=== PATIENT | female | born 1965 | race Caucasian/White ===

== ENCOUNTER 2016-08-18 12:00 | Inpatient (IN) | payer BC ==
--- NOTE | ~2016-08-18 | HP ---
Unit #: [id number] #: [id number] Patient: MELYSSA HALL [id number] [place] [address] [id number] MR#: [id number] NAME: MELYSSA HALL. ROOM: [facility] Age: 50 Sex: F Admission Date: 08/18/2016 : 1965 Attending Physician: Mir Peoples M.D. Admitting Physician: Mir Peoples M.D. Primary Care Physician: Janell Dumont M.D. HISTORY AND PHYSICAL HISTORY OF PRESENT ILLNESS Maureen is a 50 year old admitted to [facility] with depression and verbalizing wanting to hurt herself. PAST MEDICAL HISTORY Nothing significant. PAST SURGICAL HISTORY Nothing reported. ALLERGIES Penicillin, Compazine, codeine, sulfa, chlorzoxazone. SOCIAL HISTORY She denies cigarettes, alcohol and illicit drug use. FAMILY HISTORY Medically noncontributory. REVIEW OF SYSTEMS CONSTITUTIONAL: No fever or chills. HEENT: Denies any sore throat, ear pain or runny nose. CARDIOVASCULAR: Denies chest pain, irregular heart rhythm or palpitations. CHEST: Denies shortness of breath or cough. No hemoptysis. GASTROINTESTINAL: Denies nausea, vomiting, diarrhea or chronic constipation. ENDOCRINE: Denies history of increased thirst or urination. No recent significant weight loss or gain. GENITOURINARY: Denies dysuria, frequency, or hematuria. SKIN: Denies any rashes. HEMATOLOGIC: Denies history of increased bleeding or bruising. MUSCULOSKELETAL: Denies any hot, swollen joints. No generalized muscle pain. NEUROLOGIC: Denies problems with vision or speech. No frequent, severe headaches. No numbness, tingling or weakness in any extremities. Denies loss of bladder or bowel control. CURRENT MEDICATIONS 1. Milk of Magnesia p.r.n. 2. Maalox p.r.n. 3. Tylenol p.r.n. 4. Lorazepam p.r.n. Unit #: [id number] #: [id number] Patient: MELYSSA HALL 5. Citalopram 10 mg q day PHYSICAL EXAMINATION GENERAL: Alert, well-nourished, in no apparent distress. VITAL SIGNS: Blood pressure 120/80, heart rate 98, respirations 16, temperature 98.6. WEIGHT: 145 pounds. HEIGHT: 5'6". SKIN: Warm and dry without rash or lesion. HEENT: Normocephalic. TMs not viewed. Oral and nasal passages clear. Conjunctivae clear. Pupils equal, round and reactive to light and accommodation. Extraocular movements intact. NECK: Supple without lymphadenopathy or thyromegaly. HEART: Regular rate and rhythm without murmur. LUNGS: Clear. ABDOMEN: Soft, nontender. : Not done. EXTREMITIES: No evidence of cyanosis, clubbing or edema. Moves all extremities without focal deficit. NEUROLOGICAL: Grossly within normal limits. Cranial Nerves: II: Visual cifuentes are intact. III, IV AND : Extraocular movements are intact. Pupils are equal, round and reactive to light. V: Facial sensation is grossly normal. VII: Facial movements and expression are normal. VIII: Auditory acuity grossly intact. IX, X: Uvula is midline. Phonation is normal. XI: Patient shrugs shoulders and turns head normally. XII: Tongue protrudes in the midline. Sensory and Motor Function: Sensory and motor sensation is grossly normal. Motor: moves all extremities well. Coordination: Gait is normal. Deep Tendon Reflexes: Intact. IMPRESSION Psychiatric admission RECOMMENDATIONS PSYCHIATRIC: Per psychiatrist. MEDICAL: I see no contraindications to participating in facility's activities. MEDICAL PROGNOSIS Good. MEDICAL CONDITION Stable. Dictated by... Linda Grant P.A.-C. for Tyron Evans/rocio TD: 08/19/2016 23:41 JOB #: [id number] Unit #: [id number] #: [id number] Patient: MELYSSA HALL HISTORY AND PHYSICAL Page 1 of 1 X Linda Grant HISTORY AND PHYSICAL
--- NOTE | ~2016-08-18 | PN ---
Unit #: [id number] #: [id number] Patient: MELYSSA HALL [id number] [facility] [address] [place] [address] [id number] I MR#: [id number] NAME: MELYSSA HALL. ROOM: [facility] Age: 50 Sex: F Admission Date: 08/18/2016 : 1965 Attending Physician: Mir Peoples M.D. Admitting Physician: Mir Peoples M.D. Primary Care Physician: Tyron Whelan PROGRESS NOTES DATE 08/22/2016 DISCUSSION The patient is brighter today and is reporting some reduction in intrusive thoughts. She states that she may be ready for discharge as early as tomorrow and should she sustain progress, we will look in this direction. Dictated by... Mir Peoples M.D. CB/kellie TD: 08/22/2016 15:50 JOB #: [id number] [facility] PROGRESS NOTES Page 1 of 1 X Mir Peoples MD X PROGRESS NOTE
--- NOTE | ~2016-08-18 | DS ---
Unit #: [id number] #: [id number] Patient: MELYSSA HALL [id number] [place] [address] [id number] I MR#: [id number] NAME: MELYSSA HALL. ROOM: [facility] Age: 50 Sex: F Admission Date: 08/18/2016 : 1965 Discharge Date: 08/23/2016 Attending Physician: Mir Peoples M.D. Primary Care Physician: Janell Dumont M.D. DISCHARGE SUMMARY REASON FOR ADMISSION The patient is a 50-year-old single white female, admitted to the hospital with worsening depression and symptoms of intrusive thoughts consistent with obsessive-compulsive disorder. HOSPITAL COURSE The patient was admitted to the [facility] and placed on suicide precautions. Her Celexa was increased to 20 mg daily and the patient was also begun on Ativan 0.5 mg q.6 hours p.r.n. anxiety and zolpidem 5 mg at h.s. p.r.n. insomnia. The patient showed slow, but steady improvement. During her stay in the hospital, Ativan was changed to 0.25 mg t.i.d. on a scheduled basis. On 08/21/2016, the patient did much better with this medication regimen. By 08/24/2016, the patient was in bright spirits and agreeable with plan for followup in the [facility] intensive outpatient program. Discharge was ordered. FINAL DIAGNOSES Major depressive disorder, recurrent, moderate and obsessive-compulsive disorder. DISPOSITION ON DISCHARGE The patient is discharged on the following medications: Ativan 0.25 mg t.i.d. for anxiety, Ambien 5 mg at h.s. p.r.n. insomnia, and Celexa 20 mg daily for depression and obsessive-compulsive disorder. DISCHARGE INSTRUCTIONS No dietary or physical restrictions were placed upon the patient at the time of discharge. FOLLOWUP Followup will take place through the auspices of the intensive outpatient program at [facility] and under the care of Dr. Elmira Schmid. PROGNOSIS The patient's prognosis is considered good. Dictated by... Mir Peoples M.D. SANDRA/deangelo TD: 08/23/2016 17:02 Unit #: [id number] #: [id number] Patient: MELYSSA HALL JOB #: [id number] DISCHARGE SUMMARY Page 1 of 1 X Mir Peoples MD DISCHARGE SUMMARY
--- NOTE | ~2016-08-18 | PN ---
Unit #: [id number] #: [id number] Patient: MELYSSA HALL [id number] [facility] [address] [place] [address] [id number] I MR#: [id number] NAME: MELYSSA HALL. ROOM: [facility] Age: 50 Sex: F Admission Date: 08/18/2016 : 1965 Attending Physician: Mir Peoples M.D. Admitting Physician: Mir Peoples M.D. Primary Care Physician: Tyron Whelan PROGRESS NOTES DATE 08/21/2016 DISCUSSION The patient continues to complain of significant medicine teacher anxiety, continues to report considerable fear of her intrusive thoughts particularly those which occur early in the morning, I have reassured the patient that these thoughts are normal but we will go ahead and begin the patient on scheduled Ativan 0.25 mg three times daily on a scheduled basis to address her ongoing symptoms of anxiety. Dictated by... Mir Peoples M.D. CB/aidee TD: 08/21/2016 13:08 JOB #: [id number] [facility] PROGRESS NOTES Page 1 of 1 X Mir Peoples MD X PROGRESS NOTE
--- NOTE | ~2016-08-18 | PA ---
Unit #: [id number] #: [id number] Patient: MELYSSA HALL [id number] [place] [address] [id number] I MR#: [id number] NAME: MELYSSA HALL. ROOM: [facility] Age: 50 Sex: F Admission Date: 08/18/2016 : 1965 Date of Assessment: 08/19/2016 Attending Physician: Mir Peoples M.D. Admitting Physician: Mir Peoples M.D. Primary Care Physician: Janell Dumont M.D. PSYCHIATRIC ASSESSMENT IDENTIFYING INFORMATION The patient is a 50-year-old white female admitted with increasing depressed mood, thoughts of suicide and intrusive thoughts. CHIEF COMPLAINT None given. INFORMANT The patient, reliability is good. HISTORY OF PRESENT ILLNESS The patient is a 50-year-old white female admitted to the [address] [place] [address] after she presented to this facility reporting increasing intrusive thoughts. The patient states that she is fearful that she will harm herself or harm her children. The patient reports no previous suicide attempts or gestures. The patient reports that she had been stable on citalopram for some 15 years but that this medication had been stopped in 2014 by her outpatient psychiatrist Dr. Escobar. She had no recurrence of depressive or anxiety symptoms until approximately one week ago and the patient does feel as though recent hormonal replacement patch has may have played a role in her rapid develop of symptoms. These have since been discontinued. The patient is currently reporting no suicidal or homicidal ideation but does report ongoing intrusive thoughts and is fearful that she will harm her children. [facility] The patient denies use of alcohol, tobacco or street drugs. She lives with her two adopted children both of them were from [place]. 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 She complains of recent poor sleep. She denies loss of appetite. PAST PSYCHIATRIC HISTORY As above. PAST MEDICAL HISTORY Noncontributory. MEDICATIONS 1. Penicillin 2. Bactrim 3. Codeine 4. Compazine 5. Chlorzoxazone FAMILY HISTORY Unit #: [id number] #: [id number] Patient: MELYSSA HALL Noncontributory. SOCIAL HISTORY The patient lives with her two children. Her occupational history and substance abuse history was prescribed previously. She is not a smoker. MENTAL STATUS EXAMINATION At this time reveals the patient to be a well-developed, well-nourished white female, appearing her stated age. She is in no apparent physical distress at the time of examination. She is awake, alert, and oriented in all spheres. Her mood is dysphoric. Her affect constricted. Speech is generally relevant and coherent. There are no gross deficits in memory or cognition noted. Intelligence is judged to be in the average range based on fund of knowledge. The patient is cooperative throughout the interview. She is currently reporting intrusive thoughts involving self-harm and harm to her children but denies active suicidal or homicidal ideation. She denies any psychotic symptoms. Her judgement and insight appear to be intact. ASSETS AND LIABILITIES ASSETS: Motivation for change, high level of functioning. LIABILITIES: None. DIAGNOSTIC IMPRESSION 1. Obsessive compulsive disorder 2. Major depressive disorder recurrent moderate TREATMENT PLAN The patient remains hospitalized for safety and stabilization. Celexa which had already been restarted will be increased to 20 mg once daily and Ativan increased to 0.5 mg three times daily p.r.n. anxiety. The patient will participate in appropriate mendoza and milieu activities and suicidal precautions remain in place. CPS has been involved as noted previously but the patient seems to offer no real threat to her children. ESTIMATED LENGTH OF STAY Five to seven days. Dictated by... Mir Peoples M.D. SANDRA/rocio TD: 08/19/2016 23:02 JOB #: [id number] Unit #: [id number] #: [id number] Patient: MELYSSA HALL PSYCHIATRIC ASSESSMENT Page 1 of 1 X Mir Peoples MD PSYCHIATRIC ASSESSMENT
--- NOTE | ~2016-08-18 | PN ---
Unit #: [id number] #: [id number] Patient: MELYSSA HALL [id number] [facility] [address] [place] [address] [id number] I MR#: [id number] NAME: MELYSSA HALL. ROOM: [facility] Age: 50 Sex: F Admission Date: 08/18/2016 : 1965 Attending Physician: Mir Peoples M.D. Admitting Physician: Mir Peoples M.D. Primary Care Physician: Tyron Whelan PROGRESS NOTES DATE 08/19/2016 DISCUSSION Patient seems bright today but continues to feel fearful regarding leaving the hospital related to her ongoing intrusive thoughts of harming to her children. I have encouraged the patient to continue her medication and have assured her that her symptoms should improve with time. I have also discussed with the patient possible initiation of intensive outpatient programming following her discharge from the hospital. Dictated by... Mir Peoples M.D. CB/kellie TD: 08/20/2016 15:26 JOB #: [id number] [facility] PROGRESS NOTES Page 1 of 1 X Mir Peoples MD X PROGRESS NOTE
[2016-08-19 10:06] LABS: URINE APPEARANCE CLEAR; URINE BILIRUBIN NEG (NEG); URINE BLOOD 3+ (NEG); URINE COLOR YELLOW; URINE GLUCOSE NEG (NEG); URINE KETONE NEG (NEG); URINE LEUKOCYTE ESTERASE NEG (NEG); URINE NITRATE NEG (NEG); URINE PH 6.5 (5-8); URINE PROTEIN TRACE (NEG); URINE SPECIFIC GRAVITY 1.007 (1.003-1.035); URINE UROBILINOGEN 0.2 MG/DL (NEG)
[2016-08-19 10:07] LABS: BASOPHIL% 0.5 % (0-2.5); EOSINOPHIL# 0.2 X10e3 (0-0.7); EOSINOPHIL% 2.1 % (0.0-7.0); HEMATOCRIT 39.9 % (35.0-45.0); HEMOGLOBIN 13.1 gm/dL (12.0-16.0); LYMPHOCYTE# 2.4 X10e3 (1.0-3.5); LYMPHOCYTE% 28.5 % (17.0-45.0); MEAN CELL VOLUME 88.1 FL (83-96); MEAN CORPUSCULAR HEMOGLOBIN 28.9 PG (28-34); MEAN CORPUSCULAR HGB CONC 32.8 g/dL (30-36); MEAN PLATELET VOLUME 7.6 FL (6.5-11.5); MONOCYTE# 0.7 X10e3 (0-1.0); MONOCYTE% 8.4 % (3.0-12.0); NEUTROPHIL# 5.1 X10e3 (1.5-7.1); NEUTROPHIL% 60.5 % (40-75); PLATELET COUNT 315 X10e3 (140-420); RED BLOOD COUNT 4.53 X10e (3.90-5.30); RED CELL DISTRIBUTION WIDTH 13.7 % (11.0-15.5); WHITE BLOOD COUNT 8.5 X10e3 (4.0-10.5)
[2016-08-19 10:08] LABS: DIFF IND NO
[2016-08-19 10:09] LABS: URBCS1 AUWI 25-50 /[HPF] (0-2); URINE BACTERIA AUWI NEG (NEGATIVE)
[2016-08-19 10:13] LABS: ALBUMIN SERUM 3.9 g/dL (3.5-5.0); BILIRUBIN,TOTAL 0.9 mg/dL (0.2-2.0); BUN/CREATININE RATIO 18.33; CALCIUM SERUM 9.2 mg/dL (8.4-10.2); CREATININE SERUM 0.6 mg/dL (0.6-1.4); GLOM FILT RATE Estimated 105.5 mL/min (>60); POTASSIUM 3.9 mmol/L (3.5-5.1); PROTEIN TOTAL SERUM 6.6 g/dL (6.0-8.3)
[2016-08-19 10:48] LABS: URINE AMORPHOUS SEDIMENT AMORP URATES; URINE SQUAMOUS EPITHELIAL CELL FEW /[HPF]
[2016-08-19 11:27] LABS: AMPHETAMINE NEG (NEG); BARBITURATES NEG (NEG); BENZODIAZEPINES NEG (NEG); COCAINE NEG (NEG); MARIJUANA NEG (NEG); OPIATES NEG (NEG); TRICYCLIC ANTIDEPRESSANTS NEG (NEG); U METHADONE NEG (NEG)
== END 2016-08-23 15:38 | disposition home or self-care (01) | DRG 882 ==
LOC: P1E 14:36 → P2L 14:36
PROVIDERS: Specialist
DX: F42.9 Obsessive-compulsive disorder, unspecified (principal); F33.1 Major depressive disorder, recurrent, moderate; F41.9 Anxiety disorder, unspecified
CPT/HCPCS: 80053; 80307; 81003; 84703; 85025